=== PATIENT | female | born 1995 | race Caucasian/White ===

== ENCOUNTER 2017-03-16 14:12 | Emergency (ER) | payer BC ==
[2017-03-16 14:18] VITALS: BP 126/55; PULSE 80; TEMP 98.2; BMI 21.6
[2017-03-16] MEDS ORDERED: KETOROLAC TROMETHAMINE 30 MG/1 ML VIAL IVPUSH ONE (15:36)
[2017-03-16] MEDS ORDERED: SODIUM CHLORIDE 0.9% 1000 ML INFUS.BAG IV ONE ×2 (15:36→17:03)
--- NOTE | 2017-03-16 15:36 | PDOC ---
History of Present Illness - General History Source: Patient Exam Limitations: No Limitations - History of Present Illness Initial Comments: 03/16/17 15:50 The patient is a 21 year old female with a significant PMH of asthma, carpal tunnel, and GERD who presents to the emergency department with neck pain and a headache beginning approximately yesterday. The patient describes the neck pain as on the left side and radiating into the head. She also notes having general muscle weakness and having difficulty standing or lifting objects. The patient reports feeling dizzy since yesterday which has decreased but is still present. She notes having a fever on Monday (T.max 99.9F) and acknowledges sick contacts within the past week. The patient also reports associated nausea, chills, and sweats since yesterday. She notes taking Ibuprofen to no relief. She visited urgent care yesterday for evaluation and reports being ruled out for Meningitis , but was told to visit the ED if her symptoms became worse. The patient denies chest pain and shortness of breath Denies vomit, diarrhea and constipation. Denies dysuria, frequency, urgency and hematuria. LMP: 02/17/2017 Allergies: NKDA Past surgical history: None reported. Social history: No reported cigarette, alcohol, or drug use. PCP: Dr. Barrientos <Domingo Wiggins - Last Filed: 03/16/17 15:55> <Maite Guerrier - Last Filed: 03/17/17 09:20> - General Chief Complaint: Head/Neck problem Stated Complaint: PAIN Time Seen by Provider: 03/16/17 14:27 Past History <Domingo Wiggins - Last Filed: 03/16/17 15:55> - Past Medical History Asthma: Yes - Immunization History Immunization Up to Date: Yes - Suicide/Smoking/Psychosocial Hx Smoking History: Never smoked Hx Alcohol Use: No Drug/Substance Use Hx: No Substance Use Type: None <Maite Guerrier - Last Filed: 03/17/17 09:20> - Past Medical History Allergies/Adverse Reactions: Allergies Allergy/AdvReac Type Severity Reaction Status Date / Time No Known Drug Allergies Allergy Unknown Verified 03/16/17 16:50 CANTELOPE Allergy Swelling Uncoded 03/16/17 14:14 [email or web address] Allergy Uncoded 03/16/17 15:53 Home Medications: Ambulatory Orders Albuterol Sulfate Inhaler - [Ventolin Hfa Inhaler -] 1 puff IH PRN PRN 03/16/17 Fluticasone/Salmeterol [Advair 250-50 Diskus] 1 each IH DAILY 03/16/17 Review of Systems - Review of Systems Able to Perform ROS?: Yes Comments:: 03/16/17 15:50 GENERAL/CONSTITUTIONAL: (+) Fever (T.max 99.9F). (+) Chills. (+) Sweats. No weakness. HEAD, EYES, EARS, NOSE AND THROAT: No change in vision. No ear pain or discharge. No sore throat. CARDIOVASCULAR: No chest pain or shortness of breath. RESPIRATORY: No cough, wheezing, or hemoptysis. GASTROINTESTINAL: (+) Nausea. No vomiting, diarrhea or constipation. GENITOURINARY: No dysuria, frequency, or change in urination. MUSCULOSKELETAL: (+) Muscle weakness and pain. (+) Left sided neck pain. No joint pain. No back pain. SKIN: No rash NEUROLOGIC: (+) Headache. (+) Dizziness. No vertigo or loss of consciousness. ENDOCRINE: No increased thirst. No abnormal weight change. HEMATOLOGIC/LYMPHATIC: No anemia, easy bleeding, or history of blood clots. ALLERGIC/IMMUNOLOGIC: No hives or skin allergy. <Domingo Wiggins - Last Filed: 03/16/17 15:55> *Physical Exam - Vital Signs Last Vital Signs Temp Pulse Resp BP Pulse Ox 98.2 F 80 20 126/55 100 03/16/17 14:14 03/16/17 14:14 03/16/17 14:14 03/16/17 14:14 03/16/17 14:14 - Physical Exam Comments: 03/16/17 15:50 GENERAL: Awake, alert, and fully oriented, in no acute distress HEAD: No signs of trauma EYES: PERRLA, EOMI, sclera anicteric, conjunctiva clear ENT: Auricles normal inspection, hearing grossly normal, nares patent, oropharynx clear without exudates. Moist mucosa NECK: (+) Point tenderness in left paraspinal neck muscles. Normal ROM, supple, no lymphadenopathy, JVD, or masses LUNGS: Breath sounds equal, clear to auscultation bilaterally. No wheezes, and no crackles HEART: Regular rate and rhythm, normal S1 and S2, no murmurs, rubs or gallops ABDOMEN: Soft, nontender, normoactive bowel sounds. No guarding, no rebound. No masses EXTREMITIES: Normal range of motion, no edema. No clubbing or cyanosis. No cords, erythema, or tenderness NEUROLOGICAL: Cranial nerves II through XII grossly intact. Normal speech, normal gait SKIN: Warm, Dry, normal turgor, no rashes or lesions noted. <Domingo Wiggins - Last Filed: 03/16/17 15:55> - Vital Signs Last Vital Signs Temp Pulse Resp BP Pulse Ox 98.2 F 80 20 126/55 100 03/16/17 14:14 03/16/17 14:14 03/16/17 14:14 03/16/17 14:14 03/16/17 14:14 <Maite Guerrier - Last Filed: 03/17/17 09:20> ED Treatment Course - LABORATORY CBC & Chemistry Diagram: 03/16/17 15:50 03/16/17 15:50 <Maite Guerrier - Last Filed: 03/17/17 09:20> Medical Decision Making - Medical Decision Making 03/16/17 15:56 Pt presents to the ED complaining of a 5 day history of diffuse myalgias, nausea , vertigo and neck pain. Seen in an urgent care yesterday, told to seek emergency care due to concerns about menigitis. On my exam, neck is supple, but patient has left paraspinal point tenderness. Exam and history seem more consistent with viral syndrome and muscule pain than meningitis. Will check labs and reassess after pain control. If patient feels improved will discharge home. If patient continues to be uncomfortable, will consider LP. 03/16/17 16:17 <Maite Guerrier - Last Filed: 03/17/17 09:20> *DC/Admit/Observation/Transfer - Attestations Scribe Attestion: 03/16/17 15:50 Documentation prepared by Domingo Wiggins, acting as medical coding specialist for Maite Guerrier MD. <Domingo Wiggins - Last Filed: 03/16/17 15:55> <Maite Guerrier - Last Filed: 03/17/17 09:20> Diagnosis at time of Disposition: Viral syndrome - Discharge Dispostion Disposition: HOME Condition at time of disposition: Good - Referrals Referrals: Hardik Barrientos [Primary Care Provider] - - Patient Instructions Printed Discharge Instructions: DI for Viral Syndrome Additional Instructions: Rest, plenty of fluids, tylenol or motrin for fever and or body aches. Follow up with your doctor in a day or two. Return to us if worse or new symptoms occur.
[2017-03-16 15:58] LABS: BASOPHIL 0.2 % (0-2.0); EOSINOPHIL 1.2 % (0-4.5); MCH 24.2 pg (25.7-33.7); MCHC 33.1 g/dl (32.0-36.0); MEAN CELL VOLUME 73.2 fl (80-96); MEAN PLT VOLUME 8.1 fl (7.5-11.1); NEUTROPHILS 78.2 % (42.8-82.8); PLATELET COUNT 256 K/MM3 (134-434); RDW 16.3 % (11.6-15.6); WHITE BLOOD COUNT 9.9 K/mm3 (4.0-10.0)
[2017-03-16 16:23] LABS: ALBUMIN 3.8 g/dl (3.4-5.0); ANION GAP 10 (8-16); CO2 25 mmol/L (21-32); CREATININE 0.6 mg/dL (0.55-1.02); GLUCOSE,RANDOM 85 mg/dL (74-106); SGOT/AST 10 U/L (15-37); SGPT/ALT 14 U/L (12-78); TOT PROT 6.8 g/dl (6.4-8.2)
[2017-03-16 16:27] LABS: ALK PHOS 38 U/L (45-117); BILIRUBIN,TOTAL 0.5 mg/dL (0.2-1.0)
--- NOTE | 2017-03-16 19:39 | PDOC ---
*Physical Exam - Vital Signs Last Vital Signs Temp Pulse Resp BP Pulse Ox 98.2 F 80 20 126/55 100 03/16/17 14:14 03/16/17 14:14 03/16/17 14:14 03/16/17 14:14 03/16/17 14:14 ED Treatment Course - LABORATORY CBC & Chemistry Diagram: 03/16/17 15:50 03/16/17 15:50 - ADDITIONAL ORDERS Additional order review: Laboratory Results 03/16/17 03/16/17 15:50 15:45 Sodium 140 Potassium 3.5 Chloride 105 Carbon Dioxide 25 Anion Gap 10 BUN 7 Creatinine 0.6 Creat Clearance w eGFR > 60 Random Glucose 85 Calcium 9.0 Total Bilirubin 0.5 AST 10 L ALT 14 Alkaline Phosphatase 38 L Total Protein 6.8 Albumin 3.8 Urine HCG, Qual Negative 03/16/17 15:50 RBC 4.84 MCV 73.2 L MCHC 33.1 RDW 16.3 H MPV 8.1 Neutrophils % 78.2 Lymphocytes % 13.7 Monocytes % 6.7 Eosinophils % 1.2 Basophils % 0.2 - Medications Given in the ED: ED Medications Discontinued Medications Generic Name Dose Route Start Last Admin Trade Name Freq PRN Reason Stop Dose Admin Ketorolac Tromethamine 30 mg 03/16/17 15:36 03/16/17 15:59 Toradol Injection - IVPUSH 03/16/17 15:37 30 mg ONCE ONE Administration Sodium Chloride 1,000 ml 03/16/17 15:36 03/16/17 15:59 Normal Saline - IV 03/16/17 15:37 1,000 ml ONCE ONE Administration Sodium Chloride 1,000 ml 03/16/17 17:03 03/16/17 17:23 Normal Saline - IV 03/16/17 17:04 1,000 ml ONCE ONE Administration Medical Decision Making - Medical Decision Making 03/16/17 19:37 Patient feeling much better. No lightheadedness or dizziness, no neck pain *DC/Admit/Observation/Transfer Diagnosis at time of Disposition: Viral infection - Discharge Dispostion Disposition: HOME Condition at time of disposition: Good Admit: No - Referrals Referrals: Hardik Barrientos [Primary Care Provider] - - Patient Instructions Printed Discharge Instructions: DI for Viral Syndrome Additional Instructions: Rest, plenty of fluids, tylenol or motrin for fever and or body aches. Follow up with your doctor in a day or two. Return to us if worse or new symptoms occur. - Post Discharge Activity
== END 2017-03-16 19:40 | disposition home or self-care (01) ==
LOC: JER 14:12
PROC: 3E0333Z Introduction of Anti-inflammatory into Peripheral Vein, Percutaneous Approach (ICD-10-PCS; principal; 2017-03-16)
PROC: 3E0337Z Introduction of Electrolytic and Water Balance Substance into Peripheral Vein, Percutaneous Approach (ICD-10-PCS; 2017-03-16)
DX: B34.9 Viral infection, unspecified (principal); J45.909 Unspecified asthma, uncomplicated
CPT/HCPCS: 36415; 80053; 84703; 85025; 99283-25

== ENCOUNTER 2022-06-28 22:10 | Emergency (ER) | payer BC, OTHER ==
[2022-06-28 22:15] VITALS: BP 108/68; PULSE 70; RESP 18; TEMP 98.3; BMI 21.2
[2022-06-29] MEDS ORDERED: MAG HYDROX/AL HYDROX/SIMETH 30 ML UNIT-DOSE CUP PO ONE (00:05)
[2022-06-29] MEDS ORDERED: FAMOTIDINE 20 MG TABLET PO ONE (00:05)
[2022-06-29] MEDS ORDERED: ONDANSETRON *ODT* 4 MG TABLET SL ONE (00:05)
[2022-06-29] MEDS ORDERED: ONDANSETRON *ODT* 4 MG TABLET ONE (00:08)
[2022-06-29] MEDS ORDERED: MAG HYDROX/AL HYDROX/SIMETH 30 ML UNIT-DOSE CUP ONE (00:08)
[2022-06-29] MEDS ORDERED: FAMOTIDINE 20 MG TABLET ONE (00:08)
[2022-06-29] MEDS ORDERED: SODIUM CHLORIDE 0.9% 500 ML INFUS.BAG IV ONE (00:57)
[2022-06-29 01:03] LABS: HCG,QUALITATIVE URINE Negative
[2022-06-29 01:36] LABS: EPI CELLS 24 /uL (0-25.1); HYALINE CASTS 1 /uL (0-3.1); PH,URINE 5.5 (5.0-8.0); URINE APPEARANCE CLOUDY; URINE BILIRUBIN 2+ (NEGATIVE); URINE COLOR ORANGE; URINE GLUCOSE (UA) NEGATIVE (NEGATIVE); URINE KETONE 4+ (NEGATIVE); URINE LEUK ESTERASE 1+ (NEGATIVE); URINE NITRITE POSITIVE (NEGATIVE); URINE PROTEIN TRACE (NEGATIVE); URINE WBC 146 /uL (0-25.8)
== END 2022-06-29 01:57 | disposition home or self-care (01) ==
LOC: JERFT 22:10
DX: R11.0 Nausea (principal); N30.00 Acute cystitis without hematuria
CPT/HCPCS: 81003; 84703; 87086; 99284-25; Q0162